=== PATIENT | male | born 1950 | race Caucasian/White ===

== ENCOUNTER → 2020-08-14 09:37 | Outpatient (CLI) | payer MEDICARE, OTHER, SELFPAY ==
--- NOTE | 2020-08-14 | DI.RAD.S_ITS ---
PROCEDURE: XR PELVIS 1-2V INDICATIONS: Low back pain TECHNIQUE: Single view(s) of the pelvis acquired. COMPARISON: None. FINDINGS: Bones: No fracture. Lower lumbar spondylosis. Mild to moderate bilateral hip joint degeneration. Calcific tendinitis projecting in the region of the greater trochanter. A presumed subcentimeter bone island projecting in the left femoral neck, technically indeterminate. Soft tissues: Visualized bowel gas pattern is normal. No suspicious soft tissue calcifications. IMPRESSION: Lower lumbar spondylosis and facet arthropathy. Mild to moderate bilateral hip joint degeneration. Dictated by: Alberto Ovalles M.D. on 08/14/2020 at 11:00 Approved by: Alberto Ovalles M.D. on 08/14/2020 at 11:02
--- NOTE | 2020-08-14 | DI.RAD.S_ITS ---
PROCEDURE: XR LUMBAR SPINE 2-3V INDICATIONS: Low back pain TECHNIQUE: 3 views of the lumbar spine were acquired. COMPARISON: None. FINDINGS: Home Bones: No fracture. Straightening of the normal lordotic curvature. Multilevel degenerative endplate sclerosis and spurring. Diffuse facet arthropathy. Moderate to severe narrowing of the L1-L2, and L5-S1 disc spaces. Mild to moderate narrowing of the remaining disc spaces. Soft tissues: Overlying bowel gas pattern is normal. No suspicious soft tissue calcifications. IMPRESSION: Multilevel lumbar spondylosis and facet arthropathy as above. Dictated by: Alberto Ovalles M.D. on 08/14/2020 at 11:02 Approved by: Alberto Ovalles M.D. on 08/14/2020 at 11:20
== END ==
PROVIDERS: PCP Internal Medicine; Referring Provider Internal Medicine; Visit Provider Internal Medicine
DX: M54.5 Low back pain (principal); M47.816 Spondylosis without myelopathy or radiculopathy, lumbar region; M16.0 Bilateral primary osteoarthritis of hip
CPT/HCPCS: 72100; 72170